=== PATIENT | male | born 1930 | race African-American/Black ===

== ENCOUNTER → 2019-01-30 | Outpatient (CLI) | payer MEDICARE, OTHER ==
[2019-01-30 15:58] LABS: BASO % 0.5 % (0.0-2.0); EOS # 0.4 (0.0-0.7); EOS % 4.6 % (0-4.0); GRAN # 4.3 (1.4-6.5); GRAN % 56.7 % (42.2-75.2); HEMOGLOBIN 10.6 g/dl (13.5-18.0); LYMPH # 2.2 (1.2-3.4); LYMPH % 28.7 % (20.0-51.0); MEAN CELL VOLUME 86 fl (80.0-100.0); MEAN CORPUSCULAR HEMOGLOBIN 27 pg (27.0-31.0); MEAN CORPUSCULAR HGB CONC 31 g/dl (33.0-37.0); MEAN PLATELET VOLUME 10.2 fl (7.4-10.4); MONO # 0.7 (0.1-0.6); MONO % 9.4 % (1.7-9.3); PLATELET COUNT 251 K/mm3 (130-400); RED BLOOD COUNT 3.99 M/mm3 (4.20-5.60); REDCELL DISTRIBUTION WIDTH-CV 14.9 % (11.5-14.5)
[2019-01-30 15:59] LABS: HEMATOCRIT 34.2 % (42.0-52.0)
[2019-01-30 16:08] LABS: ALBUMIN 3.9 gm/dL (3.5-5.0); BILIRUBIN,TOTAL 0.2 mg/dL (0.0-1.0); CALCIUM 10.1 mg/dL (8.4-10.2); CREATININE, serum 1.1 mg/dL (0.66-1.25); POTASSIUM 4.5 mmol/L (3.4-5.0); TOTAL PROTEIN 7.4 gm/dL (6.4-8.2)
== END ==
LOC: COL.LAB 15:01
PROVIDERS: Family Medicine
DX: G30.9 Alzheimer's disease, unspecified (principal)

== ENCOUNTER → 2019-01-30 | Outpatient (CLI) | payer MEDICARE, OTHER ==
[2019-01-30 17:59] LABS: COLLECTION METHOD CLEAN CATCH
[2019-01-30 18:08] LABS: PH 5 (5-8); SQUAMOUS EPITHELIAL 0-2 /hpf; URINE APPEARANCE Clear; URINE BACTERIA Rare /hpf; URINE BILIRUBIN Negative (NEGATIVE); URINE BLOOD Negative (NEGATIVE); URINE COLOR Yellow; URINE GLUCOSE Negative (NEGATIVE); URINE KETONE Negative (NEGATIVE); URINE LEUKOCYTE ESTERASE Negative (NEGATIVE); URINE NITRATE Negative (NEGATIVE); URINE PROTEIN(semi-quant) Negative (NEGATIVE); URINE RBC None Seen /hpf
== END ==
LOC: ZCOL.LAB 17:41 → COL.LAB 17:41
PROVIDERS: Family Medicine
DX: G30.9 Alzheimer's disease, unspecified (principal)

== ENCOUNTER → 2019-07-21 | Outpatient (CLI) | payer MEDICARE ==
[2019-07-21 12:44] LABS: BASO % 0.6 % (0.0-2.0); EOS # 0.4 (0.0-0.7); EOS % 6.8 % (0-4.0); GRAN # 2.8 (1.4-6.5); GRAN % 53.9 % (42.2-75.2); HEMATOCRIT 37.4 % (42.0-52.0); HEMOGLOBIN 11.6 g/dl (13.5-18.0); LYMPH # 1.6 (1.2-3.4); LYMPH % 31.3 % (20.0-51.0); MEAN CELL VOLUME 84 fl (80.0-100.0); MEAN CORPUSCULAR HEMOGLOBIN 26 pg (27.0-31.0); MEAN CORPUSCULAR HGB CONC 31 g/dl (33.0-37.0); MEAN PLATELET VOLUME 10.8 fl (7.4-10.4); MONO # 0.4 (0.1-0.6); MONO % 7.2 % (1.7-9.3); PLATELET COUNT 253 K/mm3 (130-400); RED BLOOD COUNT 4.48 M/mm3 (4.20-5.60); REDCELL DISTRIBUTION WIDTH-CV 15.5 % (11.5-14.5)
[2019-07-21 13:26] LABS: ALANINE AMINOTRANSFERASE < 6 U/L (21-72); ALBUMIN 3.9 gm/dL (3.5-5.0); ALKALINE PHOSPHATASE 82 U/L (50-136); ANION GAP 11 mmol/L (7-16); AST,SGOT 21 U/L (15-37); BILIRUBIN,TOTAL 0.7 mg/dL (0.0-1.0); BLOOD UREA NITROGEN 15 mg/dL (9-20); CALCIUM 9.8 mg/dL (8.4-10.2); CARBON DIOXIDE 25 mmol/L (22-30); CHLORIDE 104 mmol/L (98-107); GLUCOSE 113 mg/dL (74-106); POTASSIUM 4.3 mmol/L (3.4-5.0); SODIUM 139 mmol/L (137-145); TOTAL PROTEIN 7.1 gm/dL (6.4-8.2)
== END ==
LOC: ZCOL.LAB 12:07
PROVIDERS: Family Medicine
DX: Z13.21 Encounter for screening for nutritional disorder (principal); R79.89 Other specified abnormal findings of blood chemistry

== ENCOUNTER → 2020-06-13 | Outpatient (CLI) | payer MEDICARE ==
[2020-06-13 13:18] LABS: CALCIUM 10.1 mg/dL (8.4-10.2); CREATININE, serum 1.12 (0.66-1.25); POTASSIUM 4.4 mmol/L (3.4-5.0)
== END ==
LOC: ZCOL.LAB 11:38
PROVIDERS: Emergency Medicine
DX: E66.9 Obesity, unspecified (principal)

== ENCOUNTER → 2020-09-19 | Outpatient (CLI) | payer MEDICARE ==
[2020-09-19 19:58] LABS: MUCOUS Present /lpf; PH 5 (5-8); SQUAMOUS EPITHELIAL 0-2 /hpf; URINE APPEARANCE Cloudy; URINE BACTERIA Moderate /hpf; URINE BILIRUBIN Negative (NEGATIVE); URINE BLOOD 1+ (NEGATIVE); URINE COLOR Yellow; URINE GLUCOSE Negative (NEGATIVE); URINE KETONE Negative (NEGATIVE); URINE LEUKOCYTE ESTERASE 3+ (NEGATIVE); URINE NITRATE Negative (NEGATIVE); URINE PROTEIN(semi-quant) Negative (NEGATIVE); URINE RBC 20-50 /hpf; URINE UROBILINOGEN Negative (NEGATIVE)
[2020-09-19 20:02] LABS: COLLECTION METHOD CLEAN CATCH
== END ==
LOC: ZCOL.LAB 17:46
PROVIDERS: Internal Medicine Rheumatology
DX: N39.0 Urinary tract infection, site not specified (principal)

== ENCOUNTER → 2020-12-27 | Outpatient (CLI) | payer MEDICARE, MEDICAID ==
[2020-12-27 21:00] LABS: HEMATOCRIT 37.2 % (42.0-52.0); HEMOGLOBIN 11.3 g/dl (13.5-18.0)
[2020-12-27 21:24] LABS: ALBUMIN 4.2 gm/dL (3.5-5.0); BILIRUBIN,TOTAL 0.6 mg/dL (0.0-1.0); CALCIUM 10.5 mg/dL (8.4-10.2); CREATININE, serum 1.11 (0.66-1.25); POTASSIUM 4.2 mmol/L (3.4-5.0); TOTAL PROTEIN 7.8 gm/dL (6.4-8.2)
== END ==
LOC: ZCOL.LAB 15:13
PROVIDERS: Emergency Medicine
DX: G30.9 Alzheimer's disease, unspecified (principal)

== ENCOUNTER → 2021-04-13 | Outpatient (CLI) | payer MEDICARE, MEDICAID ==
[~2021-04-13] MED LIST: ALBUTEROL0.83 MG/ML IH; ATIVAN 1MG T1 MG/TAB PO; COMPAZINE25 MG/SUPP RC; DULCOLAX S10 MG/SUPP RC; FLEET ENEM1 BOT/133 RC; ISOPTO ATROPINE15 ML SL; MIRALAX510G PO; REMERON 15M15 MG/TA1 PO; ROXANOL 20MG20 MG/ML SL; SYSTANE 0.3-0.1 EACH OP; TRANSDERM-0.5 MG/21 TD; TYLENOL 325MG325 MG PO; VASOTEC20 MG PO; VITAMIN D31000 IU PO
[2021-04-13 14:19] LABS: COLLECTION METHOD CLEAN CATCH
[2021-04-13 14:35] LABS: AMORPHOUS CRYSTAL Present /uL; MUCOUS Present /lpf; PH 5 (5-8); SQUAMOUS EPITHELIAL 0-2 /hpf; URINE APPEARANCE Cloudy; URINE BACTERIA Rare /hpf; URINE BILIRUBIN Negative (NEGATIVE); URINE BLOOD 1+ (NEGATIVE); URINE COLOR Yellow; URINE GLUCOSE Negative (NEGATIVE); URINE KETONE Negative (NEGATIVE); URINE LEUKOCYTE ESTERASE 3+ (NEGATIVE); URINE NITRATE Negative (NEGATIVE); URINE PROTEIN(semi-quant) 1+ (NEGATIVE)
== END ==
LOC: ZCOL.LAB 13:12
PROVIDERS: Emergency Medicine
DX: N39.0 Urinary tract infection, site not specified (principal)

== ENCOUNTER → 2021-04-17 | Outpatient (CLI) | payer MEDICARE, MEDICAID ==
[2021-04-18 02:31] LABS: BASO % 0.3 % (0.0-2.0); EOS # 0.4 (0.0-0.7); GRAN # 8.6 (1.4-6.5); GRAN % 70.5 % (42.2-75.2); HEMATOCRIT 37.5 % (42.0-52.0); LYMPH % 16.3 % (20.0-51.0); MEAN CELL VOLUME 90 fl (80.0-100.0); MEAN CORPUSCULAR HEMOGLOBIN 27 pg (27.0-31.0); MEAN CORPUSCULAR HGB CONC 29 g/dl (33.0-37.0); MEAN PLATELET VOLUME 11.3 fl (7.4-10.4); MONO # 1.1 (0.1-0.6); MONO % 9.3 % (1.7-9.3); PLATELET COUNT 421 K/mm3 (130-400); RED BLOOD COUNT 4.15 M/mm3 (4.20-5.60); REDCELL DISTRIBUTION WIDTH-CV 15.9 % (11.5-14.5)
== END ==
LOC: ZCOL.LAB 18:24
PROVIDERS: Family Medicine
DX: G30.9 Alzheimer's disease, unspecified (principal); R78.81 Bacteremia

== ENCOUNTER → 2021-04-18 | Outpatient (CLI) | payer MEDICARE, MEDICAID ==
[2021-04-18 14:49] LABS: ALBUMIN 3.4 gm/dL (3.5-5.0); BILIRUBIN,TOTAL 0.6 mg/dL (0.0-1.0); CALCIUM 10.5 mg/dL (8.4-10.2); CREATININE, serum 1.38 (0.66-1.25); POTASSIUM 4.8 mmol/L (3.4-5.0); TOTAL PROTEIN 7.3 gm/dL (6.4-8.2)
== END ==
LOC: ZCOL.LAB 14:06
PROVIDERS: Emergency Medicine
DX: R78.81 Bacteremia (principal); G30.9 Alzheimer's disease, unspecified

== ENCOUNTER 2021-04-28 00:27 | Inpatient (IN) | payer MEDICARE, MEDICAID ==
[~2021-04-28] VITALS: Ht 188 cm; Wt 79.8 kg
[2021-04-28 00:52] LABS: BASO # 0.1 (0.0-0.2); BASO % 0.8 % (0.0-2.0); EOS # 0.3 (0.0-0.7); EOS % 2.3 % (0-4.0); GRAN # 9.4 (1.4-6.5); GRAN % 72.9 % (42.2-75.2); LYMPH # 2.2 (1.2-3.4); MEAN CELL VOLUME 91 fl (80.0-100.0); MEAN CORPUSCULAR HGB CONC 29 g/dl (33.0-37.0); MEAN PLATELET VOLUME 10.6 fl (7.4-10.4); MONO # 0.9 (0.1-0.6); MONO % 6.8 % (1.7-9.3); PLATELET COUNT 508 K/mm3 (130-400); RED BLOOD COUNT 3.72 M/mm3 (4.20-5.60); REDCELL DISTRIBUTION WIDTH-CV 15.5 % (11.5-14.5)
[2021-04-28 00:56] LABS: HEMATOCRIT 33.8 % (42.0-52.0); HEMOGLOBIN 9.9 g/dl (13.5-18.0); MEAN CORPUSCULAR HEMOGLOBIN 27 pg (27.0-31.0)
[2021-04-28 01:09] LABS: ALBUMIN 3.4 gm/dL (3.5-5.0); BILIRUBIN,TOTAL 0.5 mg/dL (0.0-1.0); CALCIUM 10.9 mg/dL (8.4-10.2); CREATININE, serum 3.86 (0.66-1.25); POTASSIUM 5.4 mmol/L (3.4-5.0); TOTAL PROTEIN 8.1 gm/dL (6.4-8.2)
[2021-04-28 01:22] LABS: COLLECTION METHOD CATHETER
[2021-04-28 01:24] LABS: TROPONIN-I 0.087 ng/mL (0.000-0.035)
[2021-04-28 01:32] LABS: MUCOUS Present /lpf; PH 5 (5-8); SQUAMOUS EPITHELIAL None Seen /hpf; URINE APPEARANCE Hazy; URINE BACTERIA None Seen /hpf; URINE BILIRUBIN Negative (NEGATIVE); URINE BLOOD 1+ (NEGATIVE); URINE COLOR Yellow; URINE GLUCOSE Negative (NEGATIVE); URINE KETONE Negative (NEGATIVE); URINE LEUKOCYTE ESTERASE Negative (NEGATIVE); URINE NITRATE Negative (NEGATIVE); URINE PROTEIN(semi-quant) Negative (NEGATIVE); URINE RBC 0-2 /hpf
[2021-04-28 01:46] LABS: C-REACTIVE PROTEIN 21.3 mg/dL (0.0-0.9)
[2021-04-28] MEDS ORDERED: VITAMIN D31000 IU PO (02:24)
[2021-04-28] MEDS ORDERED: VASOTEC20 MG PO (02:24)
[2021-04-28] MEDS ORDERED: TYLENOL 325MG325 MG PO ×2 (02:24→03:10)
[2021-04-28 02:25] LABS: IRON,SERUM 28 ug/dL (35-150)
[2021-04-28] MEDS ORDERED: REMERON 15M15 MG/TA1 PO (02:25)
[2021-04-28] MEDS ORDERED: MIRALAX510G PO (02:25)
[2021-04-28 02:36] LABS: TOTAL IRON BINDING CAPACITY 151 ug/dL (261-462)
[2021-04-28 03:57] LABS: MAGNESIUM 2.5 mg/dL (1.6-2.3); PHOSPHOROUS 5.8 mg/dL (2.5-4.5)
[2021-04-28 03:58] LABS: CALCIUM 9.8 mg/dL (8.4-10.2); CREATININE, serum 3.32 (0.66-1.25); POTASSIUM 5.1 mmol/L (3.4-5.0)
[2021-04-28 04:29] LABS: TSH w REFLEX 1.35 uIU/mL (0.465-4.680)
--- NOTE | 2021-04-28 05:04 | NUR ---
PT TRANSFERRED TO MEDICAL FLOOR BY ED STAFF TO ROOM 313 AT 0455 HOURS . PT RESPONSIVE ONLY TO PAINFUL STIMULI. PT DOES NOT HOLD CONVERSATION WITH NURSE. PT 02 ON ROOM AIR. VSS. NURSE WILL CONDUCT ASSEMENT. BED LOW, CALL LIGHT WITHIN REACH.
[2021-04-28 06:31] LABS: CALCIUM 10.3 mg/dL (8.4-10.2); CREATININE, serum 3.27 (0.66-1.25)
[2021-04-28 06:44] LABS: TROPONIN-I 6 HR POST INITIAL 0.073 ng/mL (0.000-0.034)
--- NOTE | 2021-04-28 07:30 | NUR ---
Patient laying in bed, unresponsive,moves and groans with touch and movement. VSS. IV CDI. Akins, dependent drainage. Trace BM, 2x nurses changed and repositioned the patient. Call light within reach. Bed alarm on
[2021-04-28 07:31] VITALS: BP 156/44; PULSE 80; TEMP 97.6
--- NOTE | 2021-04-28 07:35 | NUR ---
CHANGE OF SHIFT REPORT CONDUCTED. PT RESPONDING TO PAINFUL STIMULI. PT DRIED AND CHANGED. CALL LIGHT WITHIN REACH. PT CLOSE TO NURSES STATION IN VISIBLE SITE.
[2021-04-28 12:54] VITALS: BP 143/87; PULSE 93; TEMP 97.8
--- NOTE | 2021-04-28 15:28 | NUR ---
The patient is nonverbal and is a resident at [facility]. RICHARD contacted Wing at [facility] and she confirmed the patient is a long-term care resident there. Wing faxed RICHARD the patient's DPOA-HC. RICHARD received the DPOA-HC and placed the document in the patient's chart. The patient's DPOA-HC is his brother, Jamaal (ph#[phone]). His PCP is Dr. Benavides. RICHARD attempted to contact Jamaal three times to discuss discharge plan. RICHARD left him a voicemail. [facility] has listed the patient's sister, Flower (ph#[phone]), as another person to contact. RICHARD attempted to contact Flower. RICHARD left her a voicemail. The patient's brother/DPOA-HC, Jamaal, then returned RICHARD's phone call. Jamaal states that he is out of town right now, headed to [place] to visit family. He confirms that the plan is for the patient to return back to [facility] upon discharge. RICHARD faxed updates to [facility]. RICHARD to continue to follow. *Discharge plan: [facility]*
--- NOTE | 2021-04-28 16:14 | NUR ---
First visit from the superintendent drilling and production. Chaplain belle for patient.
[2021-04-28 17:35] VITALS: BP 147/61; PULSE 92; TEMP 98.1
[2021-04-28 17:40] LABS: ALBUMIN 3.1 gm/dL (3.5-5.0); CALCIUM 10.6 mg/dL (8.4-10.2); CREATININE, serum 2.88 (0.66-1.25); POTASSIUM 4.9 mmol/L (3.4-5.0)
--- NOTE | 2021-04-28 17:50 | NUR ---
Patient had an uneventful day. Nonverbal, but responsive to painful stimuli. VSS. IV CDI. Patient repostioned on left side. Akins dependent drainage. Call light within reach. Bed alarm on
[2021-04-28 18:05] LABS: PHOSPHOROUS 5.4 mg/dL (2.5-4.5)
[2021-04-28 20:08] VITALS: BP 172/44; PULSE 91; TEMP 98.2
[2021-04-29 00:09] VITALS: BP 170/51; PULSE 93; TEMP 98.7
[2021-04-29 01:57] LABS: CALCIUM 10.5 mg/dL (8.4-10.2); CREATININE, serum 2.78 (0.66-1.25); POTASSIUM 4.7 mmol/L (3.4-5.0)
[2021-04-29 02:53] LABS: FOLATE (FOLIC ACID) 4.4 ng/mL (2.0-20.0)
[2021-04-29 04:00] VITALS: BP 142/54; PULSE 76; TEMP 98.1
--- NOTE | 2021-04-29 04:02 | NUR ---
Pt has been unresponsive since day shift, but response to stimuli and touch.Brother called to for update.
[2021-04-29 06:50] LABS: BASO # 0.1 (0.0-0.2); BASO % 0.4 % (0.0-2.0); EOS # 0.4 (0.0-0.7); EOS % 3.4 % (0-4.0); GRAN % 76.1 % (42.2-75.2); LYMPH # 1.5 (1.2-3.4); LYMPH % 12.8 % (20.0-51.0); MEAN CELL VOLUME 92 fl (80.0-100.0); MEAN CORPUSCULAR HGB CONC 29 g/dl (33.0-37.0); MEAN PLATELET VOLUME 11.2 fl (7.4-10.4); MONO # 0.8 (0.1-0.6); RED BLOOD COUNT 3.42 M/mm3 (4.20-5.60); REDCELL DISTRIBUTION WIDTH-CV 15.7 % (11.5-14.5)
[2021-04-29 07:05] LABS: HEMATOCRIT 31.6 % (42.0-52.0); HEMOGLOBIN 9.2 g/dl (13.5-18.0); MEAN CORPUSCULAR HEMOGLOBIN 27 pg (27.0-31.0); PLATELET COUNT 408 K/mm3 (130-400)
[2021-04-29 07:17] VITALS: BP 163/43; PULSE 86; TEMP 98.6
[2021-04-29 15:57] VITALS: BP 153/67; PULSE 87; TEMP 98.4
[2021-04-29 19:41] VITALS: BP 151/47; PULSE 94; TEMP 99
[2021-04-29 23:31] VITALS: BP 150/56; PULSE 85; TEMP 98.6
[2021-04-30 04:54] VITALS: BP 145/56; PULSE 92; TEMP 98.8
[2021-04-30 06:54] LABS: BASO # 0.1 (0.0-0.2); BASO % 0.5 % (0.0-2.0); EOS # 0.5 (0.0-0.7); EOS % 4.7 % (0-4.0); GRAN # 7.4 (1.4-6.5); GRAN % 72.5 % (42.2-75.2); LYMPH # 1.6 (1.2-3.4); LYMPH % 16.1 % (20.0-51.0); MEAN CELL VOLUME 92 fl (80.0-100.0); MEAN CORPUSCULAR HGB CONC 29 g/dl (33.0-37.0); MEAN PLATELET VOLUME 11.4 fl (7.4-10.4); MONO # 0.6 (0.1-0.6); MONO % 5.9 % (1.7-9.3); PLATELET COUNT 388 K/mm3 (130-400); RED BLOOD COUNT 3.14 M/mm3 (4.20-5.60); REDCELL DISTRIBUTION WIDTH-CV 15.4 % (11.5-14.5)
[2021-04-30 07:05] LABS: CALCIUM 10.2 mg/dL (8.4-10.2); CREATININE, serum 2.09 (0.66-1.25); POTASSIUM 4.1 mmol/L (3.4-5.0)
[2021-04-30 07:23] LABS: HEMATOCRIT 28.9 % (42.0-52.0); HEMOGLOBIN 8.3 g/dl (13.5-18.0); MEAN CORPUSCULAR HEMOGLOBIN 26 pg (27.0-31.0)
[2021-04-30 07:31] VITALS: BP 146/52; PULSE 84; TEMP 97.7
--- NOTE | 2021-04-30 07:38 | NUR ---
Patient laying in bed, HOB elevated. Alert, opens eyes, responds to painful stimuli. VSS. IV CDI, fluids infusing. NG tube clamped, intact. Akins dependent drainage. Heels floated. Call light within reach. Bed alarm on
[2021-04-30 11:47] VITALS: BP 146/65; PULSE 87; TEMP 97.9
[2021-04-30 15:56] VITALS: BP 140/65; PULSE 84; TEMP 98.5
--- NOTE | 2021-04-30 17:50 | NUR ---
Patient more alert today, eyes open more and did try to repsond to a question. Did not yell out when being moved in bed as much as previous days. VSS. IV CDI, fluids infusing. Patient repostioned on right side, heels floated. Akins dependent drainage. NG tube clamped and intact. Call light within reach. Bed alarm on. Door left open
--- NOTE | 2021-04-30 20:00 | NUR ---
Eyes open at times, mumbling- unable to understand-does not follow commands- Tele on, Akins with clear yellow urine, Iv fluids of D5W at 60cc/hr- Repositioned-Incontinent of small soft brown stool- personal care given. Bed alarm on- close to nsg desk.
[2021-04-30 21:00] VITALS: BP 166/54; PULSE 92; TEMP 98.5
--- NOTE | 2021-05-01 00:20 | NUR ---
NG tube checked for placement by 2 RN,s --Water bolus of 250cc given at this time- VSS, no changes- not following commands, moving just his left arm at times-
[2021-05-01 01:00] VITALS: BP 148/60; PULSE 94; TEMP 98.2
[2021-05-01 04:00] VITALS: BP 127/50; PULSE 86; TEMP 98.1
--- NOTE | 2021-05-01 06:15 | NUR ---
Second water bolus this shift given 250cc-- Akins had 650cc yellow urine out this shift. Blood sugars stayed between 85-99 during the night- VSS
[2021-05-01 06:38] LABS: CALCIUM 10.1 mg/dL (8.4-10.2); CREATININE, serum 1.82 (0.66-1.25); POTASSIUM 3.8 mmol/L (3.4-5.0)
[2021-05-01 08:16] VITALS: BP 141/48; PULSE 85; TEMP 98.2
--- NOTE | 2021-05-01 10:20 | NUR ---
Assessment completed, patient is lethargic and only responds to painful stimuli, he does not open his eyes and he is non-verbal, moans with repositioning but is unable to follow commands or answer quesition in any capacity, heart RRR/ Paced ontele, lung CTA/ no resp.difficulty and is on room air, vital signs are stable and afebrile, chemistry labs have improved with free water rehydration, NG remains in place and giving H20 boluses every 6 hours, brother whom is DPOA is here and I have discussed plan of care, he has signed consnet for LP per Neurology recommendations
--- NOTE | 2021-05-01 11:11 | NUR ---
Patient going down for brain MRI and LP at this time
[2021-05-01 12:27] VITALS: BP 142/49; PULSE 90; TEMP 98
[2021-05-01 12:58] LABS: CSF APPEARANCE CLEAR; CSF COLOR COLORLESS
[2021-05-01 12:59] LABS: CSF RBC 1 /mm3 (0-0)
[2021-05-01 13:07] LABS: GLUCOSE,CSF 55 mg/dL (40-70); TOTAL PROTEIN,CSF 51 mg/dL (15-45)
[2021-05-01 13:11] LABS: CSF MONONUCLEAR 100 % (70-100); CSF POLYMORPHONUCLEAR 0 % (0-6)
--- NOTE | 2021-05-01 13:49 | NUR ---
RICHARD faxed updates to Wing at [facility].
[2021-05-01 15:18] VITALS: BP 167/50; PULSE 88; TEMP 98
[2021-05-01 20:18] VITALS: BP 142/57; PULSE 96; TEMP 98.2
[2021-05-02] VITALS (7 sets, daily range): BP systolic 104–159; BP diastolic 44–62; PULSE 60–108; TEMP 97.9–99.6
--- NOTE | 2021-05-02 02:05 | NUR ---
PT REPOSITIONED, PT REMAINS VERBALLY UNRESPONSIVE, RESPONSIVE TO PAINFUL STIMULI ONLY. D5 INFUSING AT 60ML/HR VIA RIGHT IJ. NURSE CALLED HOSPITALIST FOR GUIDANCE OF NG TUBE FLUSH OF 250CC ORDER, HOSPITALIST SUGGESTED INFUSING 70ML/HR WHILE PT REMAINS ON FLUIDS. NURSE FLUSHED 70ML OF TAP WATER VIA NG TUBE. MOUTH MOISTENED. BED LOW. NURSE WILL CONTINUE TO MONITOR.
--- NOTE | 2021-05-02 05:43 | NUR ---
NURSE FLUSHED NG TUBE WITH WATER FOR 0600 ROUND, 60ML FLUSHED, RECOMMENDED BY HOSPITALIST. PT TOLERATED IT WELL. PT ONLY RESPONSIVE TO PAINFUL STIMULI, PT DID STATE "HEY DONT PUSH ME" WHEN NURSE AND AIDE ROLLED PT TO CLEAN, DRY AND REPOSITION. BED LOW. CALL LIGHT WITHIN REACH.
[2021-05-02 07:17] LABS: BASO # 0.1 (0.0-0.2); BASO % 0.6 % (0.0-2.0); EOS # 0.6 (0.0-0.7); EOS % 6.7 % (0-4.0); GRAN # 5.4 (1.4-6.5); GRAN % 65.4 % (42.2-75.2); LYMPH # 1.7 (1.2-3.4); LYMPH % 20.8 % (20.0-51.0); MEAN CELL VOLUME 89 fl (80.0-100.0); MEAN CORPUSCULAR HGB CONC 30 g/dl (33.0-37.0); MEAN PLATELET VOLUME 11.5 fl (7.4-10.4); MONO # 0.5 (0.1-0.6); MONO % 6.4 % (1.7-9.3); PLATELET COUNT 378 K/mm3 (130-400); RED BLOOD COUNT 3.13 M/mm3 (4.20-5.60); REDCELL DISTRIBUTION WIDTH-CV 14.5 % (11.5-14.5)
[2021-05-02 07:26] LABS: CALCIUM 10.2 mg/dL (8.4-10.2); CREATININE, serum 1.66 (0.66-1.25); POTASSIUM 3.6 mmol/L (3.4-5.0)
[2021-05-02 07:31] LABS: HEMATOCRIT 27.8 % (42.0-52.0); HEMOGLOBIN 8.3 g/dl (13.5-18.0); MEAN CORPUSCULAR HEMOGLOBIN 27 pg (27.0-31.0)
[2021-05-02 08:51] LABS: LYME DISEASE ANTIBODIES Negative (Negative)
--- NOTE | 2021-05-02 09:25 | NUR ---
Pt assessment complete. Pt is laying in bed upon entry, alert but will not answer questions. There is an occasional moan present with movement. Breathing is even and unlabored on RA. Dubhoff in place, verified by injecting air. Small amount of clear and brown contents aspirated prior to meds. Pt has a golden in place draining cloudy yellow urine. Dressing to coccyx CDI. IVF infusing into RIJ. Pt repositioned. Oral cares provided.
--- NOTE | 2021-05-02 14:59 | NUR ---
Personal Driver notified that palliative consult is placed. RICHARD updated Wing at [facility] and will continue to follow.
--- NOTE | 2021-05-02 15:16 | NUR ---
Phone call placed to Jamaal Coleman for palliative care consult after he spoke with Dr Gibson today and placed pt on comfort care. Jamaal asked that I call his sister Nayeli Esposito @ [phone]. When I spoke with her, she stated that "he isn't terminal". If you tell me the tests aren't showing any infection or anything wrong--then he is not terminal--Don't give up on him!" I had reviewed that cultures were negative, spinal tap did not show significant abnormality, he will only respond to pain at this point. Nayeli asked that the doctor give her a call to discuss. When i reported that he wasn't eating or drinking, her response was to feed him through a tube then. I discussed this with Petra HAWK and she will follow up with
--- NOTE | 2021-05-02 15:50 | NUR ---
Call recieved from Jamaal Coleman that he will want his brother to return to [facility] with [facility]. Edna Guadalupe, social work, notified of this plan. When things are finalized, Jamaal would like to be notified.
--- NOTE | 2021-05-02 16:09 | NUR ---
Cindy, palliative care nurse, notified RICHARD that she spoke to the patient's brother/DPOA-HC, Jamaal. Cindy reports that Jamaal is wanting the patient to return back to [facility] with [facility]. RICHARD notified CARINE Pang. Poly reports that the patient's sister was wanting aggressive care earlier this morning. She reports that the hospitalist would like for the patient's sister to come in tomorrow for a family meeting, to review plan. RICHARD attempted to contact Alfredo at [facility]. RICHARD left him a voicemail and faxed a referral to [place]. Awaiting screen. RICHARD updated Wing at [facility].
--- NOTE | 2021-05-02 18:52 | NUR ---
Pt remained drowsy all day, did not respond to verbal stimuli only pain or movement with the occasional moan. Dubhoff still in place, water flushes at 1200 and 1800. Repositioning provided. Mable EVANS. Fall precautions in place.
--- NOTE | 2021-05-02 19:46 | NUR ---
Sitting up in bed, dobhoff in place, fall precautions in place, golden draining per gravity w/o issue, turn q 2 hours offloading pressure areas, VS stable, will continue to monitor.
--- NOTE | 2021-05-02 19:59 | NUR ---
Call placed to [facility] Reviewed HS medications and inablility to give Lopressor- no new orders at this time, ok to hold.
[2021-05-03 00:24] VITALS: BP 134/42; PULSE 87; TEMP 97.5
[2021-05-03 04:08] VITALS: BP 141/43; PULSE 86; TEMP 98
[2021-05-03 06:55] LABS: BASO % 0.2 % (0.0-2.0); EOS # 0.5 (0.0-0.7); EOS % 6.2 % (0-4.0); GRAN # 5.1 (1.4-6.5); GRAN % 62.4 % (42.2-75.2); LYMPH # 1.9 (1.2-3.4); LYMPH % 23.4 % (20.0-51.0); MEAN CELL VOLUME 89 fl (80.0-100.0); MEAN CORPUSCULAR HGB CONC 30 g/dl (33.0-37.0); MEAN PLATELET VOLUME 11.3 fl (7.4-10.4); MONO # 0.6 (0.1-0.6); MONO % 7.4 % (1.7-9.3); PLATELET COUNT 357 K/mm3 (130-400); RED BLOOD COUNT 3.02 M/mm3 (4.20-5.60); REDCELL DISTRIBUTION WIDTH-CV 14.5 % (11.5-14.5)
[2021-05-03 06:56] LABS: HEMATOCRIT 26.8 % (42.0-52.0); HEMOGLOBIN 8.1 g/dl (13.5-18.0); MEAN CORPUSCULAR HEMOGLOBIN 27 pg (27.0-31.0)
--- NOTE | 2021-05-03 07:18 | NUR ---
Patient asleep in bed at this time. D5 running as ordered. No signs of pain, discomfort, SOA, or further needs at this time. Will continue to monitor. Call light in reach. Fall precautions in place.
[2021-05-03 07:23] LABS: CALCIUM 10.2 mg/dL (8.4-10.2); CREATININE, serum 1.53 (0.66-1.25); POTASSIUM 3.6 mmol/L (3.4-5.0)
[2021-05-03 08:27] VITALS: BP 156/49; PULSE 87; TEMP 98.8
--- NOTE | 2021-05-03 09:52 | NUR ---
Family meeting is planned for 2pm here as there is some uncertainty with family members as to decision for hospice made by DEACON-VIDAL. Will follow up with family at meeting and proceed from there.
--- NOTE | 2021-05-03 11:03 | NUR ---
Lead Case Manager contacted patient's brotherJamaal and set up family meeting for 1400. SW collaborated with Asia, Nursing Registered Appraiser who approved patient's four siblings to come in person for the family meeting. RICHARD notified hospitalist and RNCindy.
--- NOTE | 2021-05-03 11:46 | NUR ---
Scheduled medications given, assessment preformed. Patient is very lethargic, and only responds to painful stimuli. Still NPO status and recieving medications through NG tube. Stage 2 pressure ulcer present on coxycc. Feet and heels scaling/flaking. Family meeting will occur at 2 pm today to discuss plan of care. Will continue to monitor. Call light in reach. Fall precautions in place.
[2021-05-03 12:34] LABS: HSV 2 DNA PCR QUAL Not Detected (())
[2021-05-03 12:46] VITALS: BP 166/50; PULSE 83; TEMP 99.4
--- NOTE | 2021-05-03 16:02 | NUR ---
RICHARD attended the family meeting. Also present was the hospitalist, CARINE and Cindy (Palliative care nurse). The hospitalist updated the family on the patient's prognosis and how there is little chance for improvements in the patient's condition. The patient's family would like to pursue hospice at [facility] with [facility]. RICHARD notified Wing at [facility] and Alfredo at [facility]. Alfredo reports that they can start hospice tomorrow and he plans to contact the patient's brother/DPOA-HC, Jamaal, today to discuss paperwork. RICHARD contacted and updated Jamaal. He was in agreement to the plan. *Discharge plan: [facility] on hospice from [facility] tomorrow, 05/04*
--- NOTE | 2021-05-03 16:05 | NUR ---
Family meeting held after family had spent some time with patient, talking and singing to him. His three sisters and his brother Jamaal were present and spoke with Dr Parks and CARINE Lambert along with Edna, social media analyst, and Cindy Palomino RN. Kimani was given summary of hopsital stay and pt's findings. They have talked and are in agreement to proceed with hospice services at [facility]. Family also reported that his daughter Bina was downstairs and approval was obtained for her to visit also. Family is feeling comfortable with hospice decision at this time and we will hope to discharge back to [facility] tomorrow. Support provided to family.
--- NOTE | 2021-05-03 18:21 | NUR ---
Patient continues to be lethargic, only responding to painful stimuli. Patient has been accepted into hospice care. All regular medication DC'd. VS are now prn. NG tube in place with flushes occuring every 6 hours. Intermittent suctioning for comfort. Patient show no signs of pain, discomfort, or further needs at this time. Will continue to monitor. Call light in reach. Fall precautions in place.
--- NOTE | 2021-05-03 19:39 | NUR ---
Eyes open, makes sounds when moved, non verbal otherwise, repositioned q 2 hours with pressure areas offloaded with pillows, dobhoff remains, telemetry in use, call nolasco w/i reach, unable to comprehend teaching, comfort care ensues
--- NOTE | 2021-05-04 01:14 | NUR ---
Patient with NGT partially out, Call placed to [facility] NON: D/C NGT, D/C Telemetry, patient is comfort care. NGT removed with tip intact, patient tolerated well, telemetry d/c
--- NOTE | 2021-05-04 04:35 | NUR ---
Resting quietly, no c/o at this time, VS stable.
--- NOTE | 2021-05-04 07:01 | NUR ---
Patient asleep in bed at this time. Akins catheter in place, no kinks in tubing, dependant drainaige, securement device in use. No signs of pain, discomfort, or further needs at this time. Will continue to monitor. Call light in reach. Fall precautions in place.
--- NOTE | 2021-05-04 07:38 | NUR ---
Assessment preformed. Lungs clear to auscultation, normal S1 and S2 sound present, bowel sounds present in all four quadrants, radial and pedal pulses +2 bilaterally, +2 edema located in the RUE. Stage 2 ulcer located on sacral area. BLE scaling and flaking. Mouth suctioned for comfort. No signs of pain, discomfort, or futher needs at this time. Will continue to monitor. Fall precautions in place.
[2021-05-04] MEDS ORDERED: ALBUTEROL0.83 MG/ML IH (09:12)
[2021-05-04] MEDS ORDERED: ISOPTO ATROPINE15 ML SL (09:14)
[2021-05-04] MEDS ORDERED: FLEET ENEM1 BOT/133 RC (09:15)
[2021-05-04] MEDS ORDERED: COMPAZINE25 MG/SUPP RC (09:15)
[2021-05-04] MEDS ORDERED: SYSTANE 0.3-0.1 EACH OP (09:15)
[2021-05-04] MEDS ORDERED: DULCOLAX S10 MG/SUPP RC (09:15)
[2021-05-04] MEDS ORDERED: ATIVAN 1MG T1 MG/TAB PO (09:16)
[2021-05-04] MEDS ORDERED: TRANSDERM-0.5 MG/21 TD (09:16)
[2021-05-04] MEDS ORDERED: ROXANOL 20MG20 MG/ML SL (09:16)
--- NOTE | 2021-05-04 10:43 | NUR ---
Comfort quilt placed on pt's bed. No family is here. Plan for transfer to [facility] on hospice later today.
[2021-05-04 11:33] VITALS: BP 166/50; PULSE 83; TEMP 99.4
--- NOTE | 2021-05-04 13:00 | NUR ---
Patient being discharged back to [facility] on hospice. Right intenal jugular cath removed. Patient tolerated procedure well. Bed bath given. Dressing on coxxyc cleaned and changed. Stage 2 pressure ulcer present. Akins cath to reamain in. Patient escorted from [facility] by [facility]. Report called to JOSE Pike.
[2021-05-04 13:13] VITALS: BP 117/69; PULSE 68; TEMP 98
--- NOTE | 2021-05-04 14:32 | NUR ---
Patient to discharge to [facility] today with [facility]. Field Service Coordinator contacted JOSE Colbert at [facility] who advised they can admit patient around 1330 today. RICHARD collaborated with RN's, Cindy and Vanita who advised patient will need EMS transport. RICHARD contacted [facility] and scheduled cone picker time of 1300. RICHARD provided transport time to Sayra at [facility] and Alfredo at [facility]. Alfredo advised he is meeting with the family at 1100 to complete intake paperwork. RICHARD contacted patient's brother, Jamaal and notified him that patient will discharge at 1300 via [facility]. Jamaal is in agreement and provided verbal consent for EMS transfer form. RICHARD faxed discharge orders to [facility] and [facility].
== END 2021-05-04 13:00 | DRG 682 ==
LOC: COL.ER 00:27 → MEDICAL 03:02
PROVIDERS: Emergency Medicine; Internal Medicine; Nurse Practitioner Family; Psychiatry & Neurology Neurology; ADMIT Emergency Medicine
PROC: 0DH67UZ Insertion of Feeding Device into Stomach, Via Natural or Artificial Opening (ICD-10-PCS; principal; 2021-04-28)
PROC: 02HV33Z Insertion of Infusion Device into Superior Vena Cava, Percutaneous Approach (ICD-10-PCS; 2021-04-28)
PROC: 009U3ZX Drainage of Spinal Canal, Percutaneous Approach, Diagnostic (ICD-10-PCS; 2021-05-01)
DX: N17.9 Acute kidney failure, unspecified (principal); I21.A1 Myocardial infarction type 2; G93.41 Metabolic encephalopathy; E43 Unspecified severe protein-calorie malnutrition; E87.0 Hyperosmolality and hypernatremia; R65.10 Systemic inflammatory response syndrome (SIRS) of non-infectious origin without acute organ dysfunction; R64 Cachexia; Z51.5 Encounter for palliative care; Z66 Do not resuscitate; E86.0 Dehydration; E87.5 Hyperkalemia; E83.52 Hypercalcemia; D47.3 Essential (hemorrhagic) thrombocythemia; Z20.822 Contact with and (suspected) exposure to COVID-19; I12.9 Hypertensive chronic kidney disease with stage 1 through stage 4 chronic kidney disease, or unspecified chronic kidney disease; N18.31 Chronic kidney disease, stage 3a; E83.39 Other disorders of phosphorus metabolism; D63.1 Anemia in chronic kidney disease; L89.152 Pressure ulcer of sacral region, stage 2; G30.9 Alzheimer's disease, unspecified; F02.80 Dementia in other diseases classified elsewhere, unspecified severity, without behavioral disturbance, psychotic disturbance, mood disturbance, and anxiety; Z68.23 Body mass index [BMI] 23.0-23.9, adult
CPT/HCPCS: 99232-AI; 99233-AI; 99239; J0456; J0696; J1644; J1815; J7030; J7050; J7070